=== PATIENT | female | born 1995 | race African-American/Black ===

== ENCOUNTER 2017-08-13 20:17 | Emergency (ER) | payer BC ==
[2017-08-14] MEDS ORDERED: SODIUM CHLORIDE 0.9% FLUSH 10 ML FLUSH IVF (00:45)
[2017-08-14] MEDS: SODIUM CHLOR 0.9% 1000 ML INJ 1,000 ML IV (00:45)
[2017-08-14] MEDS: IBUPROFEN SUSP 100 MG/5 ML UDC PO (01:27)
== END 2017-08-14 01:42 | disposition home or self-care (01) ==
LOC: NEPD 20:17
DX: B34.9 Viral infection, unspecified (principal)
CPT/HCPCS: 87804; 87804-59; 99283